=== PATIENT | female | born 1935 | race Caucasian/White ===

== ENCOUNTER 2018-06-17 00:02 | Observation (INO) | payer OTHER ==
[~2018-06-17] VITALS: Ht 157.5 cm; Wt 61.7 kg
[2018-06-17] MEDS ORDERED: diphenhdrAMINE HCL 50 MG/1 ML VL IV ONE (00:45)
[2018-06-17] MEDS ORDERED: FAMOTIDINE (10MG/ML) 2ML VL IV ONE (00:45)
[2018-06-17] MEDS ORDERED: methylPREDNISolone SOD SUCC 125 MG/2 ML VL IV ONE (00:45)
[2018-06-17 02:27] LABS: Basophils # (auto) 0 uL; Basophils % (auto) 0.2 % (0.0-2.0); Eosinophils # (auto) 0.1 uL; Eosinophils % (auto) 1.1 % (0.0-7.0); Hematocrit 38.8 % (36.0-46.0); Hemoglobin 12.9 g/dL (12.2-16.2); Lymphocytes # (auto) 1.1 uL; Mean Corpuscular Hemoglobin 28.2 pg (28.0-32.0); Mean Corpuscular Hgb Conc. 33.3 g/dL (32.0-36.0); Mean Corpuscular Volume 84.6 fL (80.0-100.0); Monocytes # (auto) 1.6 uL; Monocytes % (auto) 14.3 % (0.0-12.0); Neutrophils # (auto) 8.2 uL; Neutrophils % (auto) 74.4 % (37.0-80.0); Platelet Count (auto) 145 10^3/uL (140-450); Red Blood Cells 4.58 10^6/uL (4.0-5.20)
[2018-06-17 02:35] VITALS: BP 160/62
[2018-06-17 02:45] LABS: Albumin 3.1 g/dL (3.4-5.0); BUN/Creatinine Ratio 27.4; Potassium 3.9 mmol/L (3.5-5.1)
[2018-06-17 02:47] LABS: Bilirubin, Total 0.4 mg/dL (0.2-1.0); Total Protein 6.2 g/dL (6.4-8.2)
== END 2018-06-17 03:13 | disposition home or self-care (01) | DRG 607 ==
LOC: ER 00:02 → OVERFLOW 00:03 → ER 03:13
PROVIDERS: ADMIT Anesthesiology; ATTEND Anesthesiology
DX: R21 Rash and other nonspecific skin eruption (principal); T78.1XXA Other adverse food reactions, not elsewhere classified, initial encounter; I10 Essential (primary) hypertension; E11.9 Type 2 diabetes mellitus without complications; E78.5 Hyperlipidemia, unspecified; X58.XXXA Exposure to other specified factors, initial encounter
CPT/HCPCS: 36415; 80053; 85025; 96374; 96375; 99285; G0378; J1200; J2930; J3490; J7030

== ENCOUNTER 2021-12-28 13:21 | Emergency (ER) | payer OTHER ==
[2021-12-28] MEDS: SODIUM CHLORIDE 0.9% 1,000 ML IV SCH ×2 (13:30→16:42)
[2021-12-28] MEDS ORDERED: DEXTROSE (50%) 50ML SYRG IV PRN (13:45)
[2021-12-28] MEDS ORDERED: INSULIN LANTUS (GLARGINE) 1 /0.01ml (100units/ml) SC ONE (13:45)
[2021-12-28] MEDS ORDERED: InsuLIN R (HUMAN) 100 UNITS in SODIUM CHL 0.9% 99 ML IV SCH (13:45)
[2021-12-28 14:16] LABS: Hemoglobin 13.4 g/dL (12.2-16.2)
[2021-12-28 14:18] LABS: Hematocrit 39.3 % (36.0-46.0); Mean Corpuscular Hemoglobin 36.6 pg (28.0-32.0); Mean Corpuscular Hgb Conc. 34.1 g/dL (32.0-36.0); Mean Corpuscular Volume 107.5 fL (80.0-100.0); Red Blood Cells 3.66 10^6/uL (4.0-5.20); Red Cell Distribution Width 14.7 % (11.8-14.3); White Blood Cell 7.4 10^3/uL (4.4-10.8)
[2021-12-28 14:43] LABS: Basophils % (manual) 0 (0.0-2.0); Blast Cells 0; Eosinophils % (manual) 0 (0-7); Metamyelocytes % 0; Myelocytes % 0; Promyelocytes % 0; Reactive Lymphocytes 0
[2021-12-28 14:46] LABS: BUN/Creatinine Ratio 23.4; Calcium 9.8 mg/dL (8.5-10.1); Magnesium 1.9 mg/dL (1.6-2.6); Potassium 4.6 mmol/L (3.5-5.1)
[2021-12-28] MEDS ORDERED: ACCU-CHEK COMFORT CURVE STRIP VI SCH (15:00)
[2021-12-28] MEDS ORDERED: InsuLIN REG 1unit/0.01ml Soln (100units/ml) IV ONE (16:30)
[2021-12-28 17:06] VITALS: BP 110/58
[2021-12-28 17:17] LABS: Band Neutrophils % (manual) 8; Lymphocytes % (manual) 11 (10.0-50.0); Monocytes % (manual) 24 (0-12)
[2021-12-28] MEDS ORDERED: SODIUM CHLORIDE 0.9% 1,000 ML IV SCH ×2 (17:45→19:45)
[2021-12-29] MEDS ORDERED: INSULIN LANTUS (GLARGINE) 1 /0.01ml (100units/ml) SC SCH (10:00)
== END 2021-12-28 17:05 | disposition home or self-care (01) ==
LOC: EDUNIT# 13:21 → ER 13:21 → EDBD 13:21 → ER 17:05
DX: E11.65 Type 2 diabetes mellitus with hyperglycemia (principal); I10 Essential (primary) hypertension; E78.5 Hyperlipidemia, unspecified
CPT/HCPCS: 36415; 36600; 80048; 82010; 82805; 82962; 83735; 83930; 84100; 85007; 85027; 87426; 96361; 96374; 99284; J1815; J7030

== ENCOUNTER 2022-06-14 23:00 | Inpatient (IN) | payer OTHER ==
[~2022-06-14] VITALS: Ht 157.5 cm; Wt 48.0 kg
[2022-06-15 00:15] LABS: Hematocrit 37.9 % (36.0-46.0); Hemoglobin 12.8 g/dL (12.2-16.2); Mean Corpuscular Hemoglobin 29.9 pg (28.0-32.0); Mean Corpuscular Hgb Conc. 33.8 g/dL (32.0-36.0); Mean Corpuscular Volume 88.4 fL (80.0-100.0); Red Blood Cells 4.28 10^6/uL (4.0-5.20); Red Cell Distribution Width 17.7 % (11.8-14.3); White Blood Cell 8.4 10^3/uL (4.4-10.8)
[2022-06-15 00:24] LABS: Basophils % (manual) 0 (0.0-2.0); Blast Cells 0; Eosinophils % (manual) 0 (0-7); Metamyelocytes % 0; Myelocytes % 0; Promyelocytes % 0; Reactive Lymphocytes 0
[2022-06-15 00:41] LABS: Albumin 2.9 g/dL (3.4-5.0); Calcium 9.6 mg/dL (8.5-10.1); Potassium 4.5 mmol/L (3.5-5.1)
[2022-06-15 00:44] LABS: BUN/Creatinine Ratio 19.8
[2022-06-15 00:56] LABS: Bilirubin, Total 0.4 mg/dL (0.2-1.0); Total Protein 7.1 g/dL (6.4-8.2)
[2022-06-15 01:21] LABS: Band Neutrophils % (manual) 5
[2022-06-15 01:22] LABS: Lymphocytes % (manual) 8 (10.0-50.0); Monocytes % (manual) 19 (0-12)
[2022-06-15] MEDS ORDERED: ONDANSETRON HCL 4 MG/2 ML VIAL IV ONE (04:30)
[2022-06-15] MEDS ORDERED: MORPHINE SULFATE 4 MG/ML SYR/VIAL IV ONE (04:30)
[2022-06-15] MEDS ORDERED: SODIUM CHLORIDE 0.9% 500 ML IV ONE (06:45)
[2022-06-15 09:27] LABS: Urine Bacteria FEW /hpf (None Seen); Urine Blood Negative /uL (Negative); Urine Specific Gravity 1.009 (1.001-1.035); Urine WBC 8 /hpf (0 - 5)
[2022-06-15] MEDS ORDERED: NITROGLYCERIN 0.4 MG SL TAB SL PRN (10:30)
[2022-06-15] MEDS ORDERED: MORPHINE SULFATE INJ 2 MG/ml SYRG IV PRN (10:30)
[2022-06-15] MEDS ORDERED: ACETAMINOPHEN 325 MG TAB PO PRN (10:30)
[2022-06-15] MEDS: HYDROcodone-ACET 5/325MG TAB PO PRN (10:45)
[2022-06-15 15:41] LABS: INR 1.04 (0.9-1.15); Partial Thromboplastin Time 28.9 sec (24.6-33.4)
[2022-06-15] MEDS ORDERED: DEXTROSE (50%) 50ML SYRG IV PRN (21:15)
[2022-06-15] MEDS ORDERED: TEMAZEPAM 15 MG CAP PO PRN ×2 (21:45→22:00)
[2022-06-15 22:00] VITALS: BP 147/91
[2022-06-15] MEDS ORDERED: GABAPENTIN 400 MG CAP PO ONE (22:00)
[2022-06-15] MEDS: ACCU-CHEK COMFORT CURVE STRIP VI SCH (22:11)
[2022-06-15] MEDS: InsuLIN REG 1unit/0.01ml Soln (100units/ml) SC SCH (22:24)
[2022-06-15 22:44] VITALS: BP 147/91
[2022-06-15] MEDS ORDERED: TEMAZEPAM 15 MG CAP PO ONE (23:30)
[2022-06-16] MEDS: DOCUSATE SOD 100 MG CAP PO PRN ×2 (00:02→21:49)
[2022-06-16] MEDS ORDERED: LORA0.5T20 (02:51)
[2022-06-16] MEDS ORDERED: LOSA-39 PO (02:51)
[2022-06-16] MEDS ORDERED: POTA-180 PO (02:51)
[2022-06-16] MEDS ORDERED: METO25TA93 PO (02:51)
[2022-06-16] MEDS ORDERED: GABA400C11 PO (02:51)
[2022-06-16] MEDS ORDERED: ONDA-180 (02:51)
[2022-06-16] MEDS ORDERED: THYR60TA2 PO (02:51)
[2022-06-16 05:48] LABS: Potassium 4.6 mmol/L (3.5-5.1)
[2022-06-16] MEDS: ACCU-CHEK COMFORT CURVE STRIP VI SCH ×4 (05:56→21:49)
[2022-06-16 05:59] LABS: Albumin 2.5 g/dL (3.4-5.0); BUN/Creatinine Ratio 20.7; Bilirubin, Total 0.6 mg/dL (0.2-1.0); Calcium 8.9 mg/dL (8.5-10.1); Total Protein 6.3 g/dL (6.4-8.2)
[2022-06-16] MEDS: InsuLIN REG 1unit/0.01ml Soln (100units/ml) SC SCH ×4 (06:02→21:51)
[2022-06-16 07:38] LABS: Basophils # (auto) 0 10 ^3/uL (0-0.2); Basophils % (auto) 0.7 % (0.0-2.0); Eosinophils # (auto) 0.1 10 ^3/uL (0-0.8); Hematocrit 40.3 % (36.0-46.0); Lymphocytes # (auto) 0.7 10 ^3/uL (0.4-5.4); Mean Corpuscular Hemoglobin 29.1 pg (28.0-32.0); Mean Corpuscular Hgb Conc. 32.3 g/dL (32.0-36.0); Mean Corpuscular Volume 90.2 fL (80.0-100.0); Monocytes # (auto) 1.2 10 ^3/uL (0-1.3); Monocytes % (auto) 17.3 % (0.0-12.0); Neutrophils # (auto) 5.1 10 ^3/uL (1.6-8.6); Red Blood Cells 4.47 10^6/uL (4.0-5.20); Red Cell Distribution Width 17.5 % (11.8-14.3); White Blood Cell 7.1 10^3/uL (4.4-10.8)
[2022-06-16 09:22] VITALS: BP 145/90
[2022-06-16] MEDS: HYDROcodone-ACET 5/325MG TAB PO PRN ×2 (10:49→15:40)
[2022-06-16 13:00] VITALS: BP 134/45
[2022-06-16] MEDS ORDERED: INSULIN LANTUS (GLARGINE) 1 /0.01ml (100units/ml) SC ONE (13:00)
[2022-06-16 16:58] VITALS: BP 127/69
[2022-06-16] MEDS: LORazepam 0.5 MG TAB PO PRN (21:49)
[2022-06-16 22:00] VITALS: BP 147/85
[2022-06-17 05:00] VITALS: BP 147/77
[2022-06-17] MEDS: ACCU-CHEK COMFORT CURVE STRIP VI SCH ×4 (06:54→21:32)
[2022-06-17] MEDS: InsuLIN REG 1unit/0.01ml Soln (100units/ml) SC SCH ×4 (06:55→21:44)
[2022-06-17] MEDS: LORazepam 0.5 MG TAB PO PRN ×2 (07:33→21:48)
[2022-06-17] MEDS: METOPROLOL TARTRATE 50 MG TAB PO SCH (08:59)
[2022-06-17 09:00] VITALS: BP 135/68
[2022-06-17] MEDS: INSULIN LANTUS (GLARGINE) 1 /0.01ml (100units/ml) SC SCH (09:01)
[2022-06-17] MEDS: ONDANSETRON HCL 4 MG/2 ML VIAL IV PRN ×2 (10:59→16:44)
[2022-06-17] MEDS ORDERED: GABA400C11 PO (11:40)
[2022-06-17 13:00] VITALS: BP 141/62
[2022-06-17 16:38] VITALS: BP 129/65
[2022-06-17 22:19] VITALS: BP 138/84
[2022-06-18 05:37] VITALS: BP 148/84
[2022-06-18] MEDS: InsuLIN REG 1unit/0.01ml Soln (100units/ml) SC SCH ×3 (06:41→17:21)
[2022-06-18] MEDS: ACCU-CHEK COMFORT CURVE STRIP VI SCH ×3 (06:42→17:22)
[2022-06-18 09:00] VITALS: BP 126/76
[2022-06-18] MEDS: INSULIN LANTUS (GLARGINE) 1 /0.01ml (100units/ml) SC SCH (09:58)
[2022-06-18] MEDS: METOPROLOL TARTRATE 50 MG TAB PO SCH (09:58)
[2022-06-18] MEDS: LORazepam 0.5 MG TAB PO PRN (12:45)
[2022-06-18 13:00] VITALS: BP_SYST 127; BP_SYST 131; BP_DIAS 40; BP_DIAS 80
[2022-06-18 14:06] VITALS: BP 126/76
== END 2022-06-18 17:45 | disposition home or self-care (01) | DRG 187 ==
LOC: EDBD 23:00 → ER 23:00 → EDUNIT# 23:00 → OVERFLOW 06-15 10:21 → CENTRAL 06-15 21:35
PROVIDERS: ADMIT Internal Medicine; ATTEND Hospitalist
PROC: 0W9B3ZZ Drainage of Left Pleural Cavity, Percutaneous Approach (ICD-10-PCS; principal; 2022-06-16)
DX: J90 Pleural effusion, not elsewhere classified (principal); E44.1 Mild protein-calorie malnutrition; S22.32XA Fracture of one rib, left side, initial encounter for closed fracture; Z68.1 Body mass index [BMI] 19.9 or less, adult; W01.0XXA Fall on same level from slipping, tripping and stumbling without subsequent striking against object, initial encounter; I10 Essential (primary) hypertension; G62.9 Polyneuropathy, unspecified; E11.65 Type 2 diabetes mellitus with hyperglycemia; Z20.822 Contact with and (suspected) exposure to COVID-19; R55 Syncope and collapse; Z92.21 Personal history of antineoplastic chemotherapy; Y93.89 Activity, other specified; Z85.3 Personal history of malignant neoplasm of breast; Y92.89 Other specified places as the place of occurrence of the external cause; Y99.8 Other external cause status; Z90.49 Acquired absence of other specified parts of digestive tract
CPT/HCPCS: 36415; 36600; 70450; 71045; 71250; 72125; 74176; 76604; 76942; 80053; 81001; 82805; 82962; 84484; 85007; 85025; 85027; 85610; 85730; 87205; 89051; 93005; 96361; 96374; 96375; 99291; G0378; J1815; J2405